=== PATIENT | male | born 1940 | race Caucasian/White ===

== ENCOUNTER 2020-05-15 13:37 | Day surgery (SDCO) | payer MEDICARE, OTHER ==
[~2020-05-15] VITALS: Ht 175.3 cm; Wt 134.3 kg
[2020-05-15 14:27] LABS: INR 1.05 (0.9-1.2); PTT 23.7 SECONDS (22.2-34.7)
[2020-05-15 14:38] LABS: ALBUMIN 3.4 g/dL (3.4-5.0); BILIRUBIN - TOTAL 0.7 mg/dL (0.2-1.0); BUN/CREAT RATIO (CALC) 29.5 RATIO; CREATININE 0.78 mg/dL (0.67-1.17); GLOBULIN (CALCULATION) 4.5 g/dL; POTASSIUM 4.8 mmol/L (3.5-5.1); TOTAL PROTEIN 7.9 g/dL (6.4-8.2)
[2020-05-15 14:42] LABS: PRO-BNP 561 pg/mL (<450)
[2020-05-15 15:12] LABS: BASOPHIL 1.2 % (0-2); EOSINOPHIL 3.7 % (0-7); HGB 17.4 g/dl (13.2-18.0); LYMPHOCYTE 19.6 % (15-48); MCH 29.3 pg (25.0-31.0); MCHC 32.2 g/dL (32.0-36.0); MCV 91.1 fL (78.0-100.0); MONOCYTE 9.4 % (0-12); MPV 10.3 fL (6.0-9.5); NEUTROPHIL 65.6 % (41-80); NRBC 0; PLT 278 K/uL (150-400); RBC 5.93 M/uL (4.70-6.00); RDW 14.7 % (11.5-14.0); WBC 11.2 K/uL (4.0-10.5)
--- NOTE | 2020-05-15 17:31 | NUR ---
PATIENT LIVES AT HOME WITH HIS . HE IS INDEPENDENT BUT USES A CANE OUTSIDE. HE STATED HE DOES NOT HAVE HOME HEALTH. HIS PCP IS DR. HEAD.
[2020-05-15] MEDS ORDERED: PRINIVIL20 MG PO (18:03)
[2020-05-15] MEDS ORDERED: ASPIRIN EC81 MG PO (18:04)
[2020-05-15] MEDS ORDERED: BISOPROLOL FUMAR5 MG PO (18:04)
[2020-05-15] MEDS ORDERED: LASIX20 MG PO (18:05)
[2020-05-15] MEDS ORDERED: ANORO ELLIPTA1 EACH INH (18:05)
[2020-05-15] MEDS ORDERED: ZOCOR40 MG PO (18:05)
[2020-05-15] MEDS ORDERED: VITAMIN D-40010 MCG PO (18:06)
[2020-05-15] MEDS ORDERED: VITAMIN B-121000 MC1 PO (18:07)
[2020-05-15] MEDS ORDERED: IMDUR 30MG TABL30 MG PO (18:08)
[2020-05-16 06:14] LABS: EOSINOPHIL 4.9 % (0-7); HCT 54.3 % (42.0-52.0); HGB 17.7 g/dl (13.2-18.0); LYMPHOCYTE 26.8 % (15-48); MCH 29.5 pg (25.0-31.0); MCHC 32.6 g/dL (32.0-36.0); MCV 90.5 fL (78.0-100.0); MONOCYTE 9.4 % (0-12); MPV 10.6 fL (6.0-9.5); NEUTROPHIL 57.3 % (41-80); NRBC 0; PLT 285 K/uL (150-400); RDW 14.8 % (11.5-14.0); WBC 10.3 K/uL (4.0-10.5)
[2020-05-16 06:33] LABS: BUN/CREAT RATIO (CALC) 27.6 RATIO; CREATININE 0.87 mg/dL (0.67-1.17); POTASSIUM 4.3 mmol/L (3.5-5.1)
[2020-05-16] MEDS ORDERED: AMIODARONE HCL200 MG PO (08:05)
[2020-05-16] MEDS ORDERED: LOPRESSOR25 MG PO (08:05)
[2020-05-16] MEDS ORDERED: ELIQUIS5 MG PO (08:05)
--- NOTE | 2020-05-16 11:50 | NUR ---
ADVISED BY MELODY TO CHECK COST OF ELIQUIS. TC TO [facility] TO CHECK ELIQUIS. THE COPAY IS $47.00. ADVISED NURSE, GONZALEZ WELL PT. PT. WAS IN AGREEMENT WITH COST AND WILL BE GETTING THE MEDICATION. THIS WAS [facility] [place]
== END 2020-05-16 13:30 | disposition home or self-care (01) ==
LOC: FER 13:37 → FTCU 15:46
PROVIDERS: Emergency Medicine; ADMIT Allergy & Immunology Allergy
DX: R07.89 Other chest pain (principal); I48.91 Unspecified atrial fibrillation; J44.9 Chronic obstructive pulmonary disease, unspecified; I25.10 Atherosclerotic heart disease of native coronary artery without angina pectoris; I35.0 Nonrheumatic aortic (valve) stenosis; I10 Essential (primary) hypertension; E78.5 Hyperlipidemia, unspecified; G47.33 Obstructive sleep apnea (adult) (pediatric); D75.1 Secondary polycythemia; Z79.82 Long term (current) use of aspirin; Z79.899 Other long term (current) drug therapy; Z88.0 Allergy status to penicillin; Z95.5 Presence of coronary angioplasty implant and graft; Z99.81 Dependence on supplemental oxygen; Z20.822 Contact with and (suspected) exposure to COVID-19
CPT/HCPCS: 36415; 71045; 80048; 80053; 80061; 83036; 83880; 84484; 85025; 85610; 85730; 93005; G0378; J1650; U0002

== ENCOUNTER 2021-08-27 17:30 | Emergency (ER) | payer MEDICARE, OTHER ==
[~2021-08-27 17:30] MED LIST: AMIODARONE HCL200 MG PO; ANORO ELLIPTA1 EACH INH; ASPIRIN EC81 MG PO; BISOPROLOL FUMAR5 MG PO; ELIQUIS5 MG PO; IMDUR 30MG TABL30 MG PO; LASIX20 MG PO; LOPRESSOR25 MG PO; PRINIVIL20 MG PO; VITAMIN B-121000 MC1 PO; VITAMIN D-40010 MCG PO; ZOCOR40 MG PO
[2021-08-27 18:49] LABS: BILIRUBIN 1+ mg/dL (NEGATIVE); BLOOD 3+ Ery/uL (NEGATIVE); GLUCOSE (U) NORMAL (NORMAL); LEUKOCYTES TRACE Leu/uL (NEGATIVE); NITRITE POSITIVE (NEGATIVE); PROTEIN 2+ mg/dL (NEGATIVE); SPECIFIC GRAVITY 1.025 (1.001-1.030); pH 6.5 (5.0-9.0)
[2021-08-27 19:08] LABS: CLARITY TURBID (CLEAR)
[2021-08-27 19:09] LABS: BACTERIA TRACE; COLOR RED (YELLOW); URINARY RBC TNTC
[2021-08-27 19:18] LABS: BASOPHIL 0.8 % (0-2); EOSINOPHIL 6.5 % (0-7); HCT 47.3 % (42.0-52.0); HGB 15.3 g/dl (13.2-18.0); LYMPHOCYTE 25.1 % (15-48); MCH 29.3 pg (25.0-31.0); MCHC 32.3 g/dL (32.0-36.0); MCV 90.6 fL (78.0-100.0); MONOCYTE 10.2 % (0-12); MPV 10.3 fL (6.0-9.5); NEUTROPHIL 56.9 % (41-80); NRBC 0; PLT 247 K/uL (150-400); RBC 5.22 M/uL (4.70-6.00); RDW 14.5 % (11.5-14.0); WBC 7.6 K/uL (4.0-10.5)
[2021-08-27 19:37] LABS: ALBUMIN 3.3 g/dL (3.4-5.0); BILIRUBIN - TOTAL 0.4 mg/dL (0.2-1.0); BUN/CREAT RATIO (CALC) 18.6 RATIO; CREATININE 1.02 mg/dL (0.67-1.17); GLOBULIN (CALCULATION) 3.6 g/dL; POTASSIUM 4.4 mmol/L (3.5-5.1); TOTAL PROTEIN 6.9 g/dL (6.4-8.2)
[2021-08-27] MEDS ORDERED: BACTRIM DS TAB1 EACH PO (21:55)
== END 2021-08-27 22:01 | disposition home or self-care (01) ==
LOC: FER 17:30
PROVIDERS: Physician Assistant
DX: N13.6 Pyonephrosis (principal); I10 Essential (primary) hypertension; I48.91 Unspecified atrial fibrillation; J44.9 Chronic obstructive pulmonary disease, unspecified; Z88.0 Allergy status to penicillin; Z87.891 Personal history of nicotine dependence
CPT/HCPCS: 36415; 71045; 80053; 81001; 83880; 84484; 85025; 87088; 93005; J0696